=== PATIENT | female | born 1980 | race Caucasian/White ===

== ENCOUNTER 2022-07-18 06:11 | Day surgery (SDC) | payer OTHER, SELFPAY ==
[2022-07-18] VITALS (10 sets, daily range): BP systolic 128–160; BP diastolic 77–91; PULSE 70–99; RESP 14–20; TEMP 36.7–36.9; O2SAT 96–99
[2022-07-18] MEDS: lidocaine HCL 2 % MULTIDOSE 20 ML VIAL INJECTION (07:20)
[2022-07-18] MEDS: BUPIVACAINE 0.5% 30 ML INJECTION (07:20)
--- NOTE | 2022-07-18 07:38 | P.ORPRC_ITS ---
Procedure Note Date of procedure: 07/18/22 Procedure: Preop diagnosis: Right hand middle finger stenosing tenosynovitis Postop diagnosis: Right hand middle finger stenosing tenosynovitis Procedure: Right hand middle finger A1 cordelia release Anesthesia: Local Surgeon: Manuelito Ro MD acute care assistant: Sadie Sargent PA-C EBL: 0 mL Complications: None Specimens: None Drains: None Preoperative antibiotics: None Indications: The patient has a history of right upper extremity middle finger painful catching and locking. Despite appropriate non operative management including flexor tendon sheath corticosteroid injections they continue to have symptoms. Operative intervention was recommended. The risks, benefits alternatives and expected outcomes were discussed in detail. These included but were not limited to: Infection, bleeding, injury to blood vessel or nerve, venous thromboembolism. All questions were answered to their satisfaction. The patient was placed supine on the operating room table. Local anesthesia was established with 0.5% Marcaine without epinephrine and 2% lidocaine without epinephrine. The hand was prepped and draped in usual sterile fashion. The limb was elevated the forearm pneumatic tourniquet was inflated to 250 mm of mercury. A transverse incision was made centered over the base of the middle finger in distal palmar crease. Subcutaneous dissection was taken through the palmar fascia to the flexor tendons with the tenotomy scissors. The A1 cordelia was released with the 15 blade and a tenotomy scissors. Active flexion and extension of the finger shows no catching or locking, no bowstringing of the flexor tendons. The wound was closed with interrupted nylon sutures. A dry dressing was applied the tourniquet was released. Sponge and needle counts were correct x 2. The patient tolerated the procedure well, there were no apparent complications. They were sent to same day surgery in satisfactory condition. Plan: Use of the hand as tolerates. Discontinue the intraoperative dressing on postoperative day 3 and may get the wound wet as tolerates. Follow up in the office in 2 weeks for a wound check and suture removal.
--- NOTE | 2022-07-25 14:03 | SUR.PHASEII ---
Phase II verification entered for LL by this RN. Verified with LL that her charting was complete.
== END 2022-07-18 08:04 | disposition home or self-care (01) ==
PROVIDERS: PCP Internal Medicine; Visit Provider Orthopaedic Surgery
PROC: (CPT 26055; principal; 2022-07-18 07:15)
DX: M65.331 Trigger finger, right middle finger (principal); M65.841 Other synovitis and tenosynovitis, right hand
CPT/HCPCS: 26055; J3490

== ENCOUNTER 2023-10-31 09:07 | Outpatient (CLI) | payer OTHER, SELFPAY ==
--- OUTSIDE RECORDS SUMMARY | 2023-10-31 09:10 | XMS_ITS | Clinical Summary ---
Author Organization [facility] Address [place], [place] [address] Care Team Providers Care Explosive Expert Name Role Phone Belkis Mcclure MD Primary Care Provider [phone] Allergies No known active allergies Medications Medication Sig Dispensed Refills Start Date End Date Status cholecalciferol (VITAMIN D) 1,000 unit capsule Take 1 capsule by mouth once daily. 0 04/13/2015 Active omega-3 fatty acids-vitamin E (FISH OIL) 1,000 mg cap Take 2 capsules by mouth once daily. 0 04/13/2015 Active metoprolol tartrate (LOPRESSOR) 25 mg tabletIndications:[place] ppropriate sinus tachycardia (HC) Take 0.5-1 Tablets (12.5-25 mg) by mouth 2 times daily if needed (tachycardia). 60 Tablet 1 10/18/2021 Active Active Problems Patient Care Coordination No te Formatting of this note migh t be different from the original. HF/Structural/Prevention Research Eligibility Review Date: 08/04/19 Upcoming Visit Location: Outreach Age: 38 y.o. Research Purpose Insurance Type: Private Insurance Comments: This patient was indicated to be a potential candidate and pre-screened for the following studies: Spyral: DNQ d/t not high enough BP Problem Noted Date Diagnosed Date Inappropriate sinus tachycardia 04/13/2015 Social History Tobacco Use Types Packs/Day Years Used Date Smoking Tobacco: Former Cigarettes Q uit: 06/28/2014 Smokeless Tobacco: Never Comments:rare, after episode is quiting Alcohol Use Standard Drinks/Week Comments No 0 (1 standard drink = 0.6 oz pur e alcohol) rare Social Connections Answer Date Recorded Frequency of Communication with Friends and Fami ly Not on file 05/28/2021 Financial Resource Strain Answer Date R ecorded Difficulty of Paying Living Expenses Not on file 05/28/2021 Difficulty of Paying Living Expenses Not on file 05/28/2021 Sex and Gender Information Value Date Recorded Sex Assigned at Not on file Gender Identity Not on file Sexual Orientation Not on file Obstetrics History Last Filed Vital Signs Vital Sign Reading Time Taken Comments Blood Pressure 142/86 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 Pulse 62 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 Temperature - - Respiratory Rate - - Oxygen Saturation 98% 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 Inhaled Oxygen Concentration - - Weight 97.7 kg (215 lb 5.4 oz) 05/08/2023 8:00 A M [employer]ER Height 162.6 cm (5' 4) 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 Body Mass Index 36.96 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 Plan of Treatment Health Maintenance Due Date Last Done Comments Tdap 09/27/1991 Depression screening for age 12+ 1992 HIV for age 15-65 09/27/1995 Hepatitis C screening for age 18-79 1998 Tetanus booster 2000 Pap test for age 21-65 02/09/2014 02/09/2011 COVID-19 vaccine series ( season) 2023 02/14/2022, 02/23/2021 Influenza for age 9-49 01/27/2024 BMI (ht and wt on same day) for age 18+ 05/08/2024 05/08/2023, 10/18/2021, 08/05/2019, Additional history exists Pneumococcal series for age 6-64 Aged Out No longer eligible based on patient's age to complete this topic Procedures Procedure Name Priority Date/Time Associated Diagnosis Comments GYNECOLOGICAL PANEL Timed 02/09/2011 1 :55 PM CDT from Last 3 Months or Most Recently Relevant to Health Maintenance Results * GYNECOLOGICAL PANEL (02/09/2011 1:55 PM CDT) CYTOLOGY CYTOPATHOLOGY REPORT [facility] Status: Final Status ?[id number] CLINICAL INFORMATION Last Date of LMP ? :12/05/10 Last Pap Date ?:2006 Last Pap Result ?:WNL ABN [place]/Bx Past 5 YRS :None Menstrual Status ? : [place]/Bx done today ? :No HPV Request ?:HPV if ASCUS SPECIMEN SOURCE ?:Cervical/vagina l ThinPrep Vial, screening SPECIMEN ADEQUACY ?:Satisfactory for evaluation No endocervical ? component seen in a patient. INTERPRETATION/RES ULT Negative for intraepithelial lesion or malignancy (NIL) Cytology 1st Screener ??:tll Signed by ?:tll This specimen was screened by the FDA approved ThinPrep Imaging System and manually reviewed. NOTE: ??The Pap test is a screening technique, not a diagnostic procedure. ??It is used ??primarily to screen for squamous cancers and precursor lesions. ??Published studies have shown that it is subject to both false negative and false positive results. ??The pap test should not be used as the sole means to diagnose or exclude pre-malignant and malignant lesions. COLLECTED:02/09/11 ? ACCESSIONED: ??02/10/11 ?? SIGNED: ??02/16/11 [facility] [place] [facility] 02/09/2011 1:55 PM CDT 02/10/2011 1:55 PM CDT Shweta Flores MD PATHOLOGY/CYTOLOGY [facility] INTERNAL ZIP [id number] [address] from Last 3 Months or Most Recently Relevant to Health Maintenance Care Teams Explosive Expert Relationship Specialty Start Date End Date Belkis Mcclure MD [address] [place] [address] PCP - General Internal Medicine 06/08/14
== END 2023-10-31 09:08 | disposition home or self-care (01) ==
PROVIDERS: PCP Internal Medicine; Visit Provider Internal Medicine
DX: Z01.84 Encounter for antibody response examination (principal); Z11.1 Encounter for screening for respiratory tuberculosis
CPT/HCPCS: 86480; 86706; 86735; 86762; 86765; 86787